=== PATIENT | female | born 1990 ===

== ENCOUNTER 2020-12-07 07:00 | Outpatient (CLI) | payer OTHER | END 2020-12-07 07:20 | disposition home or self-care (01) | LOC: PPH VACUNA 07:00 | PROVIDERS: ATTEND Emergency Medicine Pediatric Emergency Medicine | DX: Z23 Encounter for immunization (principal) ==

== ENCOUNTER 2021-11-18 09:07 | Outpatient (CLI) | payer OTHER | END 2021-11-18 09:17 | disposition home or self-care (01) | LOC: PPH VACUNA 09:07 | PROVIDERS: ATTEND Emergency Medicine Pediatric Emergency Medicine | DX: Z23 Encounter for immunization (principal) ==